=== PATIENT | female | born 1965 | race Caucasian/White ===

== ENCOUNTER 2020-11-08 01:00 | Emergency (ER) | payer MEDICAID ==
[~2020-11-08] VITALS: Ht 154.9 cm; Wt 82.0 kg
[2020-11-08] MEDS ORDERED: LOSARTAN (01:10)
[2020-11-08 02:12] LABS: BASOPHILS % 0.8 % (0.0-2.0); EOSINOPHILS % 2.4 % (0.0-5.0); HEMOGLOBIN. 13.1 g/dL (12.0-16.0); LYMPHOCYTES % 37.5 % (20.0-50.0); MEAN CORPUSCULAR HEMOGLOBIN 32.9 pg (28.0-32.0); MEAN PLATELET VOLUME 7.5 fl (7.4-10.4); NEUTROPHILS % 53.3 % (40.0-76.0); PLATELET 329 x1000/uL (130-400); RED BLOOD CELL COUNT 3.97 mill/uL (4.2-5.4); RED CELL DISTRIBUTION WIDTH 13.3 % (11.6-14.6)
[2020-11-08 02:21] LABS: CHLORIDE 107 mEq/L (98-107)
[2020-11-08 02:26] LABS: HCG SCREEN NEGATIVE
[2020-11-08 03:17] LABS: CLARITY URINE CLEAR (CLEAR); COLOR URINE YELLOW (YELLOW); KETONES URINE NEGATIVE (NEGATIVE); LEUKOCYTE ESTERASE URINE NEGATIVE (NEGATIVE); NITRITE URINE NEGATIVE (NEGATIVE); OCCULT BLOOD URINE NEGATIVE (NEGATIVE); PH URINE 5.5 (4.5-8.0); PROTEIN URINE NEGATIVE (NEGATIVE); SPECIFIC GRAVITY URINE 1.004 (1.005-1.030); UROBILINOGEN URINE 0.2 E.U./dL (0.2-1.0)
[2020-11-08] MEDS ORDERED: ONDA4TAB5 MT (04:35)
[2020-11-08] MEDS ORDERED: MECL-217 MT (04:35)
[2020-11-08 05:08] VITALS: BP 115/45
== END 2020-11-08 05:20 | disposition home or self-care (01) ==
LOC: ER 01:00
DX: R42 Dizziness and giddiness (principal); I10 Essential (primary) hypertension; R11.2 Nausea with vomiting, unspecified; Z90.710 Acquired absence of both cervix and uterus; Z98.890 Other specified postprocedural states
CPT/HCPCS: 36415; 80053; 81003; 84703; 85025; 93005; 99284

== ENCOUNTER 2021-09-28 09:35 | Emergency (ER) | payer MEDICAID ==
[~2021-09-28] VITALS: Ht 152.4 cm; Wt 82.0 kg
[~2021-09-28 09:35] MED LIST: LOSARTAN; MECL-217 MT; ONDA4TAB5 MT
[2021-09-28 09:42] VITALS: BP 131/74
[2021-09-28] MEDS ORDERED: ONDANSETRON 4MG ODT PO ONE (10:00)
[2021-09-28 10:32] LABS: BASOPHILS % 0.2 % (0.0-2.0); EOSINOPHILS % 1.5 % (0.0-5.0); HEMATOCRIT. 39.6 % (36.0-48.0); LYMPHOCYTES % 35.6 % (20.0-50.0); MEAN CORPUSCULAR HEMOGLOBIN 32.8 pg (28.0-32.0); MEAN CORPUSCULAR VOLUME 92.7 fL (81.0-99.0); MEAN PLATELET VOLUME 7.4 fl (7.4-10.4); MONOCYTES % 7.9 % (2.0-8.0); NEUTROPHILS % 54.8 % (40.0-76.0); PLATELET 368 x1000/uL (130-400); RED BLOOD CELL COUNT 4.28 mill/uL (4.2-5.4); RED CELL DISTRIBUTION WIDTH 14.6 % (11.6-14.6)
[2021-09-28 10:36] LABS: CHLORIDE 108 mEq/L (98-107)
[2021-09-28] MEDS ORDERED: ONDA4TAB5 MT (12:31)
[2021-09-28] MEDS ORDERED: IMOD MT (12:32)
== END 2021-09-28 12:54 | disposition home or self-care (01) ==
LOC: ER 10:09
DX: R10.9 Unspecified abdominal pain (principal); R11.10 Vomiting, unspecified; R19.7 Diarrhea, unspecified; E78.00 Pure hypercholesterolemia, unspecified; I10 Essential (primary) hypertension; Z90.49 Acquired absence of other specified parts of digestive tract; Z98.890 Other specified postprocedural states
CPT/HCPCS: 36415; 80048; 80076; 83690; 85025; 93005; 99284; Q0162

== ENCOUNTER 2023-12-11 15:21 | Emergency (ER) | payer MEDICAID ==
[~2023-12-11] VITALS: Ht 152.4 cm; Wt 81.0 kg
[~2023-12-11 15:21] MED LIST changes: +IMOD MT
[2023-12-11 15:24] VITALS: BP 115/88; PULSE 74; RESP 18; TEMP 98.5; O2SAT 97
[2023-12-11] MEDS: KETOROLAC 15MG/ML VIAL IM ONE (15:45)
[2023-12-11] MEDS ORDERED: NAPR-1176 MT (17:43)
[2023-12-11] MEDS ORDERED: LIDO700A15 TP (17:43)
== END 2023-12-11 17:57 | disposition home or self-care (01) ==
LOC: ER 15:21
DX: M54.9 Dorsalgia, unspecified (principal); R05.9 Cough, unspecified; I10 Essential (primary) hypertension; E78.00 Pure hypercholesterolemia, unspecified; Z90.710 Acquired absence of both cervix and uterus; Z98.890 Other specified postprocedural states
CPT/HCPCS: 99283; 71045; 96372; J1885

== ENCOUNTER 2024-07-31 13:36 | Emergency (ER) | payer MEDICAID ==
[~2024-07-31] VITALS: Ht 152.4 cm; Wt 82.5 kg
[~2024-07-31 13:36] MED LIST changes: +LIDO700A15 TP; +NAPR-1176 MT
[2024-07-31 13:49] VITALS: O2SAT 97
[2024-07-31] MEDS ORDERED: INDO50CA98 MT (18:08)
[2024-07-31] MEDS ORDERED: P50 MT (18:08)
[2024-07-31 18:17] VITALS: BP 156/82; PULSE 68; RESP 18; TEMP 36.6; O2SAT 97
== END 2024-07-31 18:18 | disposition home or self-care (01) ==
LOC: ER 13:36
DX: M10.9 Gout, unspecified (principal); I10 Essential (primary) hypertension; E78.00 Pure hypercholesterolemia, unspecified; Z79.1 Long term (current) use of non-steroidal anti-inflammatories (NSAID); Z90.710 Acquired absence of both cervix and uterus; Z98.890 Other specified postprocedural states; Z79.899 Other long term (current) drug therapy
CPT/HCPCS: 99283